=== PATIENT | female | born 1970 | race Caucasian/White ===

== ENCOUNTER 2023-04-11 07:13 | Day surgery (SDC) | payer MEDICAID ==
[~2023-04-11] VITALS: Ht 154.9 cm; Wt 64.4 kg
[2023-04-11] MEDS ORDERED: MEPERIDINE HCL/PF 25 MG/ML DISP.SYRIN ONE (07:47)
[2023-04-11] MEDS ORDERED: MEPERIDINE 100 MG INJ. 100 MG/ML VIAL ONE (08:02)
[2023-04-11] MEDS: MIDAZOLAM HCL 5 MG/5 ML VIAL ONE ×4 (11:29→11:39)
[2023-04-11 14:22] VITALS: BP_SYST 128
== END 2023-04-11 12:30 | disposition home or self-care (01) ==
LOC: SDS 07:13 → SMU 07:15 → SDS 12:30
PROVIDERS: ATTEND Internal Medicine Gastroenterology
DX: Z12.11 Encounter for screening for malignant neoplasm of colon (principal); K64.8 Other hemorrhoids; Z88.1 Allergy status to other antibiotic agents
CPT/HCPCS: 45378; 84703; 36415; 99152; G0378; J2250; J2175